=== PATIENT | female | born 1950 | race Caucasian/White ===

== ENCOUNTER → 2017-08-30 13:41 | Outpatient (CLI) | payer MEDICARE, OTHER ==
[2017-08-30 14:31] LABS: BASOPHILS 0.6 % (0-2); EOSINOPHILS 1.6 % (0-7); HEMATOCRIT 51.7 % (36.0-48.0); HEMOGLOBIN 17.3 g/dL (12-16); LYMPHOCYTES 18.8 % (15-50); MCH 27.8 pg (26.0-34.0); MCHC 33.5 g/dL (31.0-37.0); MCV 83.1 fL (80.0-100.0); MEAN PLATELET VOLUME 10.1 fL (7.4-10.4); MONOCYTES 5.6 % (2-11); NEUTROPHILS 73.4 % (40-80); PLATELET COUNT 597 10x3/uL (130-400); RBC 6.22 10x6/uL (4.00-5.40); RDW 14.7 % (11.5-14.5)
[2017-08-30 14:46] LABS: ALBUMIN 4.2 g/dL (3.4-5.0); ALKALINE PHOSPHATASE 109 U/L (46-116); ALT (SGPT) 68 U/L (10-68); BILIRUBIN - TOTAL 0.32 mg/dL (0.2-1.3); CALC OSMOLALITY 280 mosm/kg (275-300); CALCIUM 10.4 mg/dL (8.5-10.1); CARBON DIOXIDE 29.1 mmol/L (21.0-32.0); CHLORIDE - SERUM 100 mmol/L (98-107); CREATININE - SERUM 0.6 mg/dL (0.6-1.3); GLUCOSE 108 mg/dL (74-106); POTASSIUM - SERUM 4.7 mmol/L (3.5-5.1); PROTEIN - SERUM 7.4 g/dL (6.4-8.2); SODIUM 141 mmol/L (136-145); UREA NITROGEN 10 mg/dL (7-18); eGFR NON AFRICAN AMERICAN > 90 mL/min (90-120)
[2017-08-30 15:32] LABS: ERYTHROCYTE SEDIMENTATION RATE 0 mm/hr (0-30)
[2017-08-31 14:12] LABS: HEP B CORE AB TOTAL Negative (Negative); HEPATITIS C ANTIBODY >11.0 (0.0-0.9)
[2017-09-02 11:12] LABS: ANA REFLEX - ANTICHROMATIN ABS <0.2 AI (0.0-0.9); ANA REFLEX - CENTROMERE B ABS <0.2 AI (0.0-0.9); ANA REFLEX - DBL STRANDED DNA <1 IU/mL (0-9); ANA REFLEX - DIRECT Positive (Negative); ANA REFLEX - JO-1 AB <0.2 AI (0.0-0.9); ANA REFLEX - RNP ANTIBODIES 1.6 AI (0.0-0.9); ANA REFLEX - SCL-70 <0.2 AI (0.0-0.9); ANA REFLEX - SJOGRENS AB SSA <0.2 AI (0.0-0.9); ANA REFLEX - SJOGRENS AB SSB 0.2 AI (0.0-0.9); ANA REFLEX - SMITH AB <0.2 AI (0.0-0.9)
[2017-09-02 15:20] LABS: EHRLICHIA CHAFF IGG Negative (Neg:<1:64); EHRLICHIA CHAFF IGM Negative (Neg:<1:20); HGE IGG TITER Negative (Neg:<1:64); HGE IGM TITER Negative (Neg:<1:20)
[2017-09-03 15:21] LABS: RMSF IGM 0.27 index (0.00-0.89)
[2017-09-06 13:16] LABS: F. TULARENSIS - IGG Negative (()); F. TULARENSIS - IGM Negative (())
== END | disposition home or self-care (01) ==
LOC: D.LABREF 13:41
PROVIDERS: Student in an Organized Health Care Education/Training Program
DX: R50.9 Fever, unspecified (principal)

== ENCOUNTER → 2017-09-12 13:19 | Outpatient (CLI) | payer MEDICARE, OTHER | END | disposition home or self-care (01) | LOC: D.RAD 09-04 08:00 | DX: R50.9 Fever, unspecified (principal) ==

== ENCOUNTER → 2017-09-20 11:11 | Outpatient (CLI) | payer MEDICARE, OTHER ==
[2017-09-24 10:10] LABS: HCVGENO - HEP C QUANT HCV Not Detected IU/mL (())
== END | disposition home or self-care (01) ==
LOC: D.LABREF 11:11
PROVIDERS: Student in an Organized Health Care Education/Training Program
DX: Z11.59 Encounter for screening for other viral diseases (principal)